=== PATIENT | female | born 1970 | race Caucasian/White ===

== ENCOUNTER → 2019-08-01 15:28 | Outpatient (BNVA) | payer MEDICAID, SELFPAY | PROVIDERS: Visit Provider Internal Medicine Rheumatology | DX: M35.9 Systemic involvement of connective tissue, unspecified (principal); Z79.899 Other long term (current) drug therapy; M19.90 Unspecified osteoarthritis, unspecified site; M05.9 Rheumatoid arthritis with rheumatoid factor, unspecified; G56.03 Carpal tunnel syndrome, bilateral upper limbs; M79.7 Fibromyalgia; Z79.52 Long term (current) use of systemic steroids | CPT/HCPCS: 99214 ==

== ENCOUNTER → 2019-10-16 12:38 | Outpatient (BNVA) | payer MEDICAID, SELFPAY | PROVIDERS: Visit Provider Internal Medicine Rheumatology | DX: M19.90 Unspecified osteoarthritis, unspecified site (principal); Z79.899 Other long term (current) drug therapy | CPT/HCPCS: 36415; 80076; 82565; 85025; 85651; 86140 ==

== ENCOUNTER → 2019-10-26 14:58 | Outpatient (BNVA) | payer MEDICAID, SELFPAY | PROVIDERS: Visit Provider Internal Medicine Rheumatology | DX: M35.9 Systemic involvement of connective tissue, unspecified (principal); M05.9 Rheumatoid arthritis with rheumatoid factor, unspecified; M19.90 Unspecified osteoarthritis, unspecified site; Z79.899 Other long term (current) drug therapy; R76.0 Raised antibody titer; M54.16 Radiculopathy, lumbar region; M79.7 Fibromyalgia | CPT/HCPCS: 99214 ==

== ENCOUNTER 2019-11-02 13:19 | Outpatient (CLI) | payer MEDICAID, SELFPAY ==
--- NOTE | 2019-11-02 13:23 | XR_ITS ---
WS: [id number] RIGHT FOOT: 3 VIEW(S) TECHNIQUE: AP, oblique and lateral. HISTORY: inflammatory arthritis COMPARISON: None available. No acute fracture or dislocation. Normal tarsal/metatarsal alignment. No soft tissue abnormality or bone destruction. Screw fixation in the distal tibia. XR/XR foot RT min 3V* [id number] IMPRESSION: Negative RIGHT foot. No erosions.
--- NOTE | 2019-11-02 13:23 | XR_ITS ---
WS: [id number] LEFT ELBOW: 2 VIEW(S) TECHNIQUE: AP and lateral. HISTORY: inflammatory arthritis COMPARISON: None available. No acute fractures or dislocation. No joint effusion. No soft tissue abnormality. XR/XR elbow LT 2V [id number] IMPRESSION: Normal LEFT elbow.
--- NOTE | 2019-11-02 13:23 | XR_ITS ---
WS: [id number] LEFT FOOT: 3 VIEW(S) TECHNIQUE: AP, oblique and lateral. HISTORY: inflammatory arthritis COMPARISON: None available. No acute fracture or dislocation. There is an erosion with mildly sclerotic margins and overhanging edges which could be related to gou t. There is adjacent soft tissue. No periarticular osteopenia. No soft tissue abnormality or bone destruction. XR/XR foot LT min 3V* [id number] IMPRESSION: Small erosion from the medial first metatarsal head. Not typical for inflammato ry arthritis. Consider gout or subchondral cyst.
--- NOTE | 2019-11-02 13:23 | XR_ITS ---
WS: [id number] RIGHT ELBOW: 2 VIEW(S) TECHNIQUE: AP and lateral. HISTORY: inflammatory arthritis COMPARISON: None available. No acute fractures or dislocation. No joint effusion. No soft tissue abnormality. XR/XR elbow RT 2V [id number] IMPRESSION: Normal RIGHT elbow.
--- NOTE | 2019-11-02 13:23 | XR_ITS ---
WS: [id number] RIGHT HAND: 3 VIEW(S) TECHNIQUE: PA, oblique and lateral. HISTORY: inflammatory arthritis COMPARISON: None available. No acute fracture or dislocation. No soft tissue or bone abnormality. XR/XR hand RT min 3V* [id number] IMPRESSION: Normal RIGHT hand.
--- NOTE | 2019-11-02 13:23 | XR_ITS ---
WS: [id number] LEFT HAND: 3 VIEW(S) TECHNIQUE: PA, oblique and lateral. HISTORY: inflammatory arthritis COMPARISON: None available. No acute fracture or dislocation. No soft tissue or bone abnormality. XR/XR hand LT min 3V* [id number] IMPRESSION: Normal LEFT hand.
== END 2019-11-02 13:20 | disposition home or self-care (01) ==
LOC: RADWPI 13:22
PROVIDERS: PCP Nurse Practitioner Family; Visit Provider Internal Medicine Rheumatology
DX: M19.90 Unspecified osteoarthritis, unspecified site (principal); M85.872 Other specified disorders of bone density and structure, left ankle and foot
CPT/HCPCS: 73070; 73130; 73630

== ENCOUNTER → 2020-02-01 10:42 | Outpatient (BNVA) | payer MEDICAID, SELFPAY | PROVIDERS: PCP Nurse Practitioner Family; Visit Provider Internal Medicine Rheumatology | DX: M34.9 Systemic sclerosis, unspecified (principal); Z79.899 Other long term (current) drug therapy; M19.90 Unspecified osteoarthritis, unspecified site; M35.9 Systemic involvement of connective tissue, unspecified; M06.041 Rheumatoid arthritis without rheumatoid factor, right hand; M06.042 Rheumatoid arthritis without rheumatoid factor, left hand; G56.03 Carpal tunnel syndrome, bilateral upper limbs; M79.7 Fibromyalgia; Z79.52 Long term (current) use of systemic steroids | CPT/HCPCS: 36415; 80076; 82565; 85025; 85651; 86140; 99214 ==

== ENCOUNTER → 2021-03-25 09:32 | Outpatient (BNVA) | payer MEDICAID, SELFPAY | PROVIDERS: PCP Nurse Practitioner Family; Visit Provider Internal Medicine Rheumatology | DX: M34.9 Systemic sclerosis, unspecified (principal); M06.041 Rheumatoid arthritis without rheumatoid factor, right hand; M06.042 Rheumatoid arthritis without rheumatoid factor, left hand; M19.90 Unspecified osteoarthritis, unspecified site; G56.03 Carpal tunnel syndrome, bilateral upper limbs; Z79.899 Other long term (current) drug therapy; M79.7 Fibromyalgia; F41.8 Other specified anxiety disorders; G47.33 Obstructive sleep apnea (adult) (pediatric); Z71.89 Other specified counseling | CPT/HCPCS: 99214 ==

== ENCOUNTER 2021-04-21 10:17 | Emergency (ER) | payer MEDICAID, SELFPAY ==
[2021-04-21 10:42] VITALS: BP 119/78; PULSE 102; RESP 22; TEMP 36.6; O2SAT 97; BMI 32.8
--- NOTE | 2021-04-21 10:49 | XR_ITS ---
WS: [id number] PORTABLE CHEST HISTORY: productive cough COMPARISON: 02/24/2017 Lungs are clear and well expanded. No pleural effusion or pneumothorax. Cardiac size: Normal. Mediastinum/Aorta: Normal mediastinum. No osseous abnormality seen. XR/XR chest 1V portable [id number] IMPRESSION: Unremarkable portable chest.
[2021-04-21 11:05] VITALS: BP 120/80; PULSE 104; RESP 22; TEMP 38.6; O2SAT 97
[2021-04-21 11:16] VITALS: O2SAT 95
--- NOTE | 2021-04-21 11:22 | ECG_ITS ---
[facility] Test Date: 2021-04-21 Pat Name: Charley Clark Department: Room: Gender: Female Box Liner: : 1970 Requested By: Royal Agudelo Order Number: [id number] Martin MD: Juan David Mueller M.D. Measurements Intervals Hematite Rate: 97 P: 2 CT: 137 QRS: -23 QRSD: 97 T: -2 QT: 337 QTc: 428 Interpretive Statements SINUS RHYTHM BORDERLINE LEFT AXIS DEVIATION [QRS AXIS < -20] Compared to ECG 02/24/2017 12:37:26 No significant changes Electronically Signed On 04-21-2021 16:44:57 DIRECTOR APPAREL by Juan David Mueller M.D. [id number]
--- NOTE | 2021-04-21 11:24 | W.ED.COVID ---
Documented by User: ARMAND Bryan 04/22/21 07:22 HPI - COVID General: Chief Complaint: COVID symptoms Stated Complaint: Cough, DELAROSA, Nausea, Tiredness, Diarrhea Time Seen by Provider: 04/21/21 10:49 Triage information: Has fever, cough or shortness of breath. No known COVID + exposure last 14 days History of Present Illness: HPI Narrative: Patient is a 50-year-old female comes to the ED with upper respiratory symptoms. Patient says she started developing symptoms approximately 3 days ago. She has a productive cough with yellow sputum. She also reports having some nausea and diarrhea. She denies any episodes of emesis but states she has not had much of an appetite since onset of symptoms. She also reports a headache as well and body aches. Yesterday she had multiple episodes of diarrhea, but has not had any diarrhea this morning. Denies any chest pain or shortness of breath. COVID 19 common symptoms: positive body aches, headache(s), nausea and diarrhea; negative fever(s), chills, non-productive cough, productive cough, dyspnea, fatigue, throat pain, nasal congestion or vomiting COVID 19 other sytmptoms: negative chest pain COVID Results: SARS-CoV-2 Antigen (Rapid) Positive (Negative) H 04/21/21 11:18 04/21/21 Review of Systems Const: Reports: body aches and change in appetite (decreased); Denies: fever(s), chills or fatigue Eyes: Denies: change in vision or eye discomfort ENMT: Denies: throat pain, odynophagia, nasal discharge or nasal congestion Card: Denies: chest pain, palpitations, edema, swelling of feet/ankles, dyspnea on exertion or orthopnea Resp: Denies: dyspnea, productive cough or non-productive cough GI: Reports: nausea and diarrhea; Denies: abdominal pain, vomiting, constipation or hematochezia : Denies: flank pain, dysuria or hematuria Musc: Denies: neck pain, back pain or extremity swelling Skin/Breast: Denies: rash or new lesions Neuro: Reports: headache(s); Denies: numbness in extremities or weakness in extremities PFS ED PFSH: Medical History Carpal tunnel syndrome High risk medication use Immunization counseling Inflammatory arthritis Seronegative rheumatoid arthritis of both hands Systemic sclerosis Undifferentiated connective tissue disease Surgical History History of ankle surgery fusion 2009 Hx of cholecystectomy Social History Smoking and tobacco status: never smoked Alcohol intake: never History of recent travel: No Physical Exam Const: COMMON NORMALS: no acute distress, patient oriented x3, healthy appearing and alert GENERAL APPEARANCE: cooperative and comfortable HENMT: COMMON NORMALS: normocephalic HEAD & SCALP: normocephalic MOUTH: Normal oral and palatal mucosa present THROAT: posterior oropharynx normal and uvula midline Eye: COMMON NORMALS: Equal, round and reactive pupils present PUPIL: Yes Equal, round and reactive pupils present Neck/C-Spine: COMMON NORMALS: supple GENERAL: Yes normal visual inspection Resp: COMMON NORMALS: normal respiratory effort, No retractions and No use of accessory muscles EFFORT & INSPECTION: Yes able to speak in complete sentences, No tachypneic, No respiratory distress, No labored and Yes Actively coughing productive AUSCULTATION: diminished lung sounds on the left in the lower lung mccann OTHER: all other lung mccann clear to auscultation Cardio: COMMON NORMALS: regular rate, regular rhythm, S1 normal heart sound present, S2 normal heart sound present, No gallops present (Cardio), No clicks present (Cardio), No murmurs present (Cardio) and Peripheral pulses 2+ throughout RATE: regular rate RHYTHM: regular rhythm HEART SOUNDS: S1 normal heart sound present and S2 normal heart sound present PERIPHERAL PULSES: Peripheral pulses 2+ throughout GI: COMMON NORMALS: Normal to inspection, nondistended, normoactive bowel sounds present, Soft to palpation, non-tender and no masses PALPATION: Yes Soft to palpation : COMMON NORMALS: Yes no CVA tenderness BLADDER/KIDNEY EXAM: Yes no CVA tenderness Back/Pelvis: COMMON NORMALS: no CVA tenderness Extremity: COMMON NORMALS: normal to inspection Neuro: COMMON NORMALS: patient oriented x3 and moves all extremities SENSORIUM/ORIENTATION: Yes alert Skin: GENERAL SKIN EXAM: dry skin Course Vital Signs: Vital signs: Vital Signs Temperature 99.4 F 04/21/21 14:07 Pulse Rate 88 04/21/21 14:07 Respiratory Rate 20 H 04/21/21 14:07 Blood Pressure 124/64 04/21/21 14:07 Pulse Oximetry 94 04/21/21 14:07 MDM - COVID MDM Narrative: Medical decision making narrative: Pt is a 50 y/o F who comes to the ED with Upper respiratory symptoms. pmh of Lupus. vitals stable. She reports a productive cough. Pt had some mild diminished lung sound in left lower lung, but all other lung mccann CTA and rest of exam was benign. CBC, CMP were unremarkable. COVID lab +, influenza negative. CXR- showed no acute findings. EKG showed normal sinus rhythm. I spoke with pt about MCA infusions and she signed consent form and i placed an order with case management to get pt set up for MCA infusion. Pt diagnosed with COVID -19 and DC home with antibiotic, prednisone and tessalon perles. return to ED precautions given. Follow up with PCP in 7-10 days for reevaluation. pt understood and agreed with plan. Lab Data: Attestation: I reviewed the patient's lab results. Labs: Lab Results 04/21/21 04/21/21 04/21/21 11:18 11:18 11:18 WBC RBC Hgb Hct MCV MCH MCHC RDW Plt Count MPV Neut % (Auto) Lymph % (Auto) [place] % (Auto) Eos % (Auto) Baso % (Auto) Neut # (Auto) Lymph # (Auto) [place] # (Auto) Eos # (Auto) Baso # (Auto) Nucleated RBC % (a uto) Nucleated RBCs # Sodium Potassium Chloride Carbon Dioxide Anion Gap BUN Creatinine GFR Calculation Glucose Calculated Osmolal ity Calcium Total Bilirubin AST ALT Alkaline Phosphata se Total Protein Albumin Globulin Lipase Urine Color Yellow (Yellow) Urine Appearance Clear (CLEAR) Urine pH 5 (5-7) Ur Specific Gravit y 1.015 (1.005-1.030) Urine Protein Neg (Negative) Urine Glucose (UA) Norm (Normal) Urine Ketones Negative (Negative) Urine Blood Neg (Negative) Urine Nitrate Negative (Negative) Urine Bilirubin Neg (Negative) Urine Urobilinogen 1 mg/dL H mg/dL (Negative) Ur Leukocyte Violetta ase Negative (Negative) Influenza Type A A g Negative (Negative) Influenza Type B A g Negative (Negative) SARS-CoV-2 Ag (Rap id) Positive H (Negative) 04/21/21 04/21/21 11:50 11:50 WBC 7.4 10^3/uL 10^3/ uL (4.0-10.0) RBC 4.51 10^6/uL 10^6 /uL (4.1-5.3) Hgb 14.1 g/dL g/dL (11.5-15.3) Hct 41.0 % % (37.0-47.0) MCV 90.9 fl fl (81-99) MCH 31.3 pg pg (28.0-34.0) MCHC 34.4 g/dL g/dL (30.0-36.0) RDW 11.9 % L % (12.1-15.1) Plt Count 220 10^3/cmm 10^3 /cmm (130-400) MPV 9.7 fL fL (7.4-10.4) Neut % (Auto) 78.1 % % Lymph % (Auto) 11.2 % % [place] % (Auto) 9.7 % % Eos % (Auto) 0.4 % % Baso % (Auto) 0.3 % % Neut # (Auto) 5.78 10^3/uL 10^3 /uL (1.8-7.7) Lymph # (Auto) 0.8 10^3/uL 10^3/ uL (0.8-4.8) [place] # (Auto) 0.7 10^3/uL 10^3/ uL (0.2-0.9) Eos # (Auto) 0.0 10^3/uL 10^3/ uL (0.0-0.8) Baso # (Auto) 0.0 10^3/uL 10^3/ uL (0.0-0.1) Nucleated RBC % (a uto) 0 % % Nucleated RBCs # 0.0 /100WBC /100W BC Sodium 141 mmol/L mmol/L (136-145) Potassium 3.7 mmol/L mmol/L (3.5-5.1) Chloride 103 mmol/L mmol/L (98-107) Carbon Dioxide 24 mmol/L mmol/L (22-29) Anion Gap 17.7 (5-19) BUN 11 mg/dL mg/dL (6-20) Creatinine 0.5 mg/dL mg/dL (0.5-0.9) GFR Calculation 129.6 mL/min mL/m in (90-130) Glucose 90 mg/dL mg/dL (65-115) Calculated Osmolal ity 291 mOsm/kg mOsm/ kg (285-295) Calcium 8.7 mg/dL mg/dL (8.5-10.5) Total Bilirubin 0.4 mg/dL mg/dL (0.15-1.2) AST 25 U/L U/L (0-32) ALT 20 U/L U/L (0-33) Alkaline Phosphata se 89 IU/L IU/L (35-105) Total Protein 7.1 g/dL g/dL (6.6-8.7) Albumin 3.9 g/dL g/dL (3.5-5.2) Globulin 3.2 g/dL g/dL (1.3-4.6) Lipase 32 U/L U/L (13-60) Urine Color Urine Appearance Urine pH Ur Specific Gravit y Urine Protein Urine Glucose (UA) Urine Ketones Urine Blood Urine Nitrate Urine Bilirubin Urine Urobilinogen Ur Leukocyte Violetta ase Influenza Type A A g Influenza Type B A g SARS-CoV-2 Ag (Rap id) Imaging Data: CXR: Attestation: I personally reviewed and interpreted this imaging study as follows: Radiologist's impression: [address] [address] XRay Report Signed Patient: Charley Clark Unit #: [id number] : 1970 Age/Sex: 50 / F ADM Date: 04/21/21 Loc: ER Room/Bed: Attending Dr: Ordering Provider/Ordering MD: Royal Agudelo Date of Service: 04/21/21 Procedure(s): XR chest 1V portable [id number] Accession Number(s): [id number] Report Number: [id number] WS: [id number] PORTABLE CHEST HISTORY: productive cough COMPARISON: 02/24/2017 Lungs are clear and well expanded. No pleural effusion or pneumothorax. Cardiac size: Normal. Mediastinum/Aorta: Normal mediastinum. No osseous abnormality seen. XR/XR chest 1V portable [id number] IMPRESSION: Unremarkable portable chest. Dictated By: Yaquelin Ayala DO Signed By: Yaquelin Ayala A Signed Date/Time: 04/21/211118 DD/ 18 EKG Data: EKG 1: Attestation: I personally reviewed and interpreted this EKG as follows: EKG interpretation date: 04/21/21 Interpretation: Normal sinus rhythm, 97 bpm, no ST segment elevation or depression seen. COVID Results: SARS-CoV-2 Antigen (Rapid) Positive (Negative) H 04/21/21 11:18 04/21/21 Discharge Plan Discharge Patient Disposition: Home Clinical Impression: COVID-19 Condition: Stable Prescriptions: New prednisone 20 mg tablet 20 mg PO BID 5 Days Qty: 10 RF: 0 Tessalon Perles 100 mg capsule 100 mg PO TID PRN (Reason: cough) Qty: 20 RF: 0 Augmentin 500-125 mg tablet 1 tab PO BID 7 Days Qty: 14 RF: 0 No Action meloxicam [Mobic] 15 mg tablet 15 mg PO DAILY RF: 0 sumatriptan succinate [Imitrex] 100 mg tablet 100 mg PO .COMPLEX PRN (Reason: migraine headache) RF: 0 escitalopram oxalate [Lexapro] 10 mg tablet 10 mg PO DAILY RF: 0 promethazine 25 mg tablet 25 mg PO Q6H PRNRF: 0 ibuprofen 600 mg tablet 600 mg PO DAILY PRNRF: 0 etonogestrel 68 mg implant 68 mg SUBDERMAL ONCE RF: 0 acetaminophen-codeine [Tylenol-Codeine #3] 300-30 mg tablet 1 tab PO BID PRNRF: 0 multivitamin Tablet 1 tab PO DAILY RF: 0 Orencia ClickJect 125 mg/mL auto-injector 125 mg SUBCUT .Q7days Qty: 4 RF: 3 hydroxychloroquine 200 mg tablet 200 mg PO BID Qty: 60 RF: 3 pregabalin [Lyrica] 225 mg capsule 225 mg PO BID Qty: 60 RF: 3 pantoprazole 40 mg tablet,delayed release (DR/EC) 40 mg PO DAILY Qty: 30 RF: 0 prednisone 2.5 mg tablet See Rx Instructions PO DAILY Qty: 90 RF: 0 Discharge Orders: Discharge ED (Routine); Ordered 04/21/21 Ordered By: Royal Agudelo Referrals: Mehreen Quarles FNP [Primary Care Provider] - Discharge Diet: Regular Discharge Activity: Increase activity as tolerated and Limit activity as instructed Patient Instructions: Viral Syndrome (ED), Upper Respiratory Infection - Adult Activity Restrictions/Additional Instructions: Follow-up with medical provider as directed. rehabilitation manager will be contacting you tomorrow morning to get the monoclonal antibody infusion scheduled. Take medications as prescribed. Return to the ER or your medical provider if condition worsens. Please read and understand discharge instructions. Thank you for choosing [facility] for your healthcare needs today. Please realize this is an emergency room and that we are providing you with a medical screening exam and this may not be complete and all inclusive of all the testing and or work up that you may need to determine your ailment or severity of your illness. It is very important that you follow up as instructed or that you return to the Emergency Department should you have concerns or if your condition changes or worsens in any way. Coding Level of Care Code ED Lead Custodian for Chg Fwd Exam Comprehensive Documented by User: Castillo Miramontes DO 04/24/21 10:00 HPI - COVID General: Chief Complaint: COVID symptoms Stated Complaint: Cough, DELAROSA, Nausea, Tiredness, Diarrhea Time Seen by Provider: 04/21/21 10:49 COVID Results: SARS-CoV-2 Antigen (Rapid) Positive (Negative) H 04/21/21 11:18 04/21/21 [facility] ED PFSH: Medical History Carpal tunnel syndrome High risk medication use Immunization counseling Inflammatory arthritis Seronegative rheumatoid arthritis of both hands Systemic sclerosis Undifferentiated connective tissue disease Surgical History History of ankle surgery fusion 2009 Hx of cholecystectomy Social History Smoking and tobacco status: never smoked Alcohol intake: never History of recent travel: No Course Vital Signs: Vital signs: Vital Signs Temperature 99.4 F 04/21/21 14:07 Pulse Rate 88 04/21/21 14:07 Respiratory Rate 20 H 04/21/21 14:07 Blood Pressure 124/64 04/21/21 14:07 Pulse Oximetry 94 04/21/21 14:07 MDM - COVID MDM Narrative: Medical decision making narrative: Chart reviewed and patient discussed with midlevel. Agree with assessment and plan. Lab Data: Labs: Lab Results 04/21/21 04/21/21 04/21/21 11:18 11:18 11:18 WBC RBC Hgb Hct MCV MCH MCHC RDW Plt Count MPV Neut % (Auto) Lymph % (Auto) [place] % (Auto) Eos % (Auto) Baso % (Auto) Neut # (Auto) Lymph # (Auto) [place] # (Auto) Eos # (Auto) Baso # (Auto) Nucleated RBC % (a uto) Nucleated RBCs # Sodium Potassium Chloride Carbon Dioxide Anion Gap BUN Creatinine GFR Calculation Glucose Calculated Osmolal ity Calcium Total Bilirubin AST ALT Alkaline Phosphata se Total Protein Albumin Globulin Lipase Urine Color Yellow (Yellow) Urine Appearance Clear (CLEAR) Urine pH 5 (5-7) Ur Specific Gravit y 1.015 (1.005-1.030) Urine Protein Neg (Negative) Urine Glucose (UA) Norm (Normal) Urine Ketones Negative (Negative) Urine Blood Neg (Negative) Urine Nitrate Negative (Negative) Urine Bilirubin Neg (Negative) Urine Urobilinogen 1 mg/dL H mg/dL (Negative) Ur Leukocyte Violetta ase Negative (Negative) Influenza Type A A g Negative (Negative) Influenza Type B A g Negative (Negative) SARS-CoV-2 Ag (Rap id) Positive H (Negative) 04/21/21 04/21/21 11:50 11:50 WBC 7.4 10^3/uL 10^3/ uL (4.0-10.0) RBC 4.51 10^6/uL 10^6 /uL (4.1-5.3) Hgb 14.1 g/dL g/dL (11.5-15.3) Hct 41.0 % % (37.0-47.0) MCV 90.9 fl fl (81-99) MCH 31.3 pg pg (28.0-34.0) MCHC 34.4 g/dL g/dL (30.0-36.0) RDW 11.9 % L % (12.1-15.1) Plt Count 220 10^3/cmm 10^3 /cmm (130-400) MPV 9.7 fL fL (7.4-10.4) Neut % (Auto) 78.1 % % Lymph % (Auto) 11.2 % % [place] % (Auto) 9.7 % % Eos % (Auto) 0.4 % % Baso % (Auto) 0.3 % % Neut # (Auto) 5.78 10^3/uL 10^3 /uL (1.8-7.7) Lymph # (Auto) 0.8 10^3/uL 10^3/ uL (0.8-4.8) [place] # (Auto) 0.7 10^3/uL 10^3/ uL (0.2-0.9) Eos # (Auto) 0.0 10^3/uL 10^3/ uL (0.0-0.8) Baso # (Auto) 0.0 10^3/uL 10^3/ uL (0.0-0.1) Nucleated RBC % (a uto) 0 % % Nucleated RBCs # 0.0 /100WBC /100W BC Sodium 141 mmol/L mmol/L (136-145) Potassium 3.7 mmol/L mmol/L (3.5-5.1) Chloride 103 mmol/L mmol/L (98-107) Carbon Dioxide 24 mmol/L mmol/L (22-29) Anion Gap 17.7 (5-19) BUN 11 mg/dL mg/dL (6-20) Creatinine 0.5 mg/dL mg/dL (0.5-0.9) GFR Calculation 129.6 mL/min mL/m in (90-130) Glucose 90 mg/dL mg/dL (65-115) Calculated Osmolal ity 291 mOsm/kg mOsm/ kg (285-295) Calcium 8.7 mg/dL mg/dL (8.5-10.5) Total Bilirubin 0.4 mg/dL mg/dL (0.15-1.2) AST 25 U/L U/L (0-32) ALT 20 U/L U/L (0-33) Alkaline Phosphata se 89 IU/L IU/L (35-105) Total Protein 7.1 g/dL g/dL (6.6-8.7) Albumin 3.9 g/dL g/dL (3.5-5.2) Globulin 3.2 g/dL g/dL (1.3-4.6) Lipase 32 U/L U/L (13-60) Urine Color Urine Appearance Urine pH Ur Specific Gravit y Urine Protein Urine Glucose (UA) Urine Ketones Urine Blood Urine Nitrate Urine Bilirubin Urine Urobilinogen Ur Leukocyte Violetta ase Influenza Type A A g Influenza Type B A g SARS-CoV-2 Ag (Rap id) COVID Results: SARS-CoV-2 Antigen (Rapid) Positive (Negative) H 04/21/21 11:18 04/21/21 Discharge Plan Discharge Patient Disposition: Home Clinical Impression: COVID-19 Condition: Stable Prescriptions: New prednisone 20 mg tablet 20 mg PO BID 5 Days Qty: 10 RF: 0 Tessalon Perles 100 mg capsule 100 mg PO TID PRN (Reason: cough) Qty: 20 RF: 0 Augmentin 500-125 mg tablet 1 tab PO BID 7 Days Qty: 14 RF: 0 No Action meloxicam [Mobic] 15 mg tablet 15 mg PO DAILY RF: 0 sumatriptan succinate [Imitrex] 100 mg tablet 100 mg PO .COMPLEX PRN (Reason: migraine headache) RF: 0 escitalopram oxalate [Lexapro] 10 mg tablet 10 mg PO DAILY RF: 0 promethazine 25 mg tablet 25 mg PO Q6H PRNRF: 0 ibuprofen 600 mg tablet 600 mg PO DAILY PRNRF: 0 etonogestrel 68 mg implant 68 mg SUBDERMAL ONCE RF: 0 acetaminophen-codeine [Tylenol-Codeine #3] 300-30 mg tablet 1 tab PO BID PRNRF: 0 multivitamin Tablet 1 tab PO DAILY RF: 0 Orencia ClickJect 125 mg/mL auto-injector 125 mg SUBCUT .Q7days Qty: 4 RF: 3 hydroxychloroquine 200 mg tablet 200 mg PO BID Qty: 60 RF: 3 pregabalin [Lyrica] 225 mg capsule 225 mg PO BID Qty: 60 RF: 3 pantoprazole 40 mg tablet,delayed release (DR/EC) 40 mg PO DAILY Qty: 30 RF: 0 prednisone 2.5 mg tablet See Rx Instructions PO DAILY Qty: 90 RF: 0 Discharge Orders: Discharge ED (Routine); Ordered 04/21/21 Ordered By: Royal Akins: Mehreen Quarles FNP [Primary Care Provider] - Discharge Diet: Regular Discharge Activity: Increase activity as tolerated and Limit activity as instructed Patient Instructions: Viral Syndrome (ED), Upper Respiratory Infection - Adult Activity Restrictions/Additional Instructions: Follow-up with medical provider as directed. rehabilitation manager will be contacting you tomorrow morning to get the monoclonal antibody infusion scheduled. Take medications as prescribed. Return to the ER or your medical provider if condition worsens. Please read and understand discharge instructions. Thank you for choosing [facility] for your healthcare needs today. Please realize this is an emergency room and that we are providing you with a medical screening exam and this may not be complete and all inclusive of all the testing and or work up that you may need to determine your ailment or severity of your illness. It is very important that you follow up as instructed or that you return to the Emergency Department should you have concerns or if your condition changes or worsens in any way. Coding Level of Care Code ED Lead Custodian for Gerri Fwtessy Exam Comprehensive
[2021-04-21 12:02] LABS: Add Urine Microscopic? NO; Charge for UA Resulting for Rev
[2021-04-21] MEDS: ondansetron 2 mg/ML SDV 2 mL 4 MG IVP (12:07)
[2021-04-21] MEDS: ibuprofen 800 mg tablet PO (12:07)
[2021-04-21 12:09] VITALS: BP 131/68; PULSE 99; RESP 15; TEMP 38.3; O2SAT 93
[2021-04-21 12:14] LABS: Bilirubin Urine Neg (Negative); Blood Urine Neg (Negative); Glucose Urine UA Norm (Normal); Ketones Urine Negative (Negative); Leukocyte Esterase Urine Negative (Negative); Nitrate Urine Negative (Negative); Protein Urine Neg (Negative); Specific Gravity, Urine 1.015 (1.005-1.030); Urine Appearance Clear (CLEAR); Urine Color Yellow (Yellow); Urobilinogen Urine 1 mg/dL (Negative); pH Urine 5 (5-7)
[2021-04-21 12:21] LABS: Basophils % 0.3 %; Eosinophils % 0.4 %; Hemoglobin 14.1 g/dL (11.5-15.3); Lymphocytes # 0.8 10^3/uL (0.8-4.8); Lymphocytes % 11.2 %; Mean Corpuscular HGB Conc 34.4 g/dL (30.0-36.0); Mean Corpuscular Hemoglobin 31.3 pg (28.0-34.0); Mean Corpuscular Volume 90.9 fl (81-99); Mean Platelet Volume 9.7 fL (7.4-10.4); Monocytes # 0.7 10^3/uL (0.2-0.9); Monocytes % 9.7 %; Neutrophils # 5.78 10^3/uL (1.8-7.7); Neutrophils % 78.1 %; Nucleated Red Blood Cells % 0 %; Platelet Count 220 10^3/cmm (130-400); Red Blood Count 4.51 10^6/uL (4.1-5.3); Red Cell Distribution Width 11.9 % (12.1-15.1); White Blood Count 7.4 10^3/uL (4.0-10.0)
[2021-04-21 12:25] LABS: SARS Covid-2 Antigen Positive (Negative)
[2021-04-21 12:27] LABS: Influenza A by IFA Negative (Negative); Influenza B by IFA Negative (Negative)
[2021-04-21 12:32] LABS: Alanine Aminotransferase 20 U/L (0-33); Albumin Level 3.9 g/dL (3.5-5.2); Alkaline Phosphatase 89 IU/L (35-105); Blood Urea Nitrogen 11 mg/dL (6-20); Calcium 8.7 mg/dL (8.5-10.5); Carbon Dioxide 24 mmol/L (22-29); Chloride 103 mmol/L (98-107); Globulin 3.2 g/dL (1.3-4.6); Glomerular Filtration Rate 129.6 mL/min (90-130); Glucose 90 mg/dL (65-115); Lipase 32 U/L (13-60); Osmolality Calculated 291 mOsm/kg (285-295); Sodium 141 mmol/L (136-145); Total Bilirubin 0.4 mg/dL (0.15-1.2); Total Protein 7.1 g/dL (6.6-8.7)
[2021-04-21] MEDS: sodium chloride 0.9% 1,000 ML 999 ML IV (12:43)
[2021-04-21 12:47] LABS: Anion Gap 17.7 (5-19); Aspartate Amino Transferase 25 U/L (0-32); Potassium 3.7 mmol/L (3.5-5.1)
[2021-04-21 14:07] VITALS: BP 124/64; PULSE 88; RESP 20; TEMP 37.4; O2SAT 94
--- NOTE | 2021-04-22 12:14 | DCPLANNER ---
industrial safety and health manager had message to schedule an outpatient monoclonal antibody infusion. industrial safety and health manager faxed order to centralized scheduling.
== END 2021-04-21 14:09 | disposition home or self-care (01) ==
PROVIDERS: Emergency Provider Physician Assistant; PCP Nurse Practitioner Family
DX: U07.1 COVID-19 (principal); Z79.891 Long term (current) use of opiate analgesic; Z79.1 Long term (current) use of non-steroidal anti-inflammatories (NSAID)
CPT/HCPCS: 71045; 80053; 81003; 83690; 85025; 87426; 87804; 93005; 96361; 96374; 99284; J2405; J7030

== ENCOUNTER 2021-04-25 13:30 | Outpatient (CLI) | payer MEDICAID, SELFPAY ==
[2021-04-25 13:46] VITALS: BP 143/80; PULSE 88; RESP 18; TEMP 36.3; O2SAT 95; BMI 32.8
[2021-04-25 15:45] VITALS: BP 112/69; PULSE 88; RESP 16; TEMP 37; O2SAT 93
== END 2021-04-25 13:31 | disposition home or self-care (01) ==
LOC: OPS 13:31
PROVIDERS: PCP Nurse Practitioner Family; Visit Provider Physician Assistant
DX: U07.1 COVID-19 (principal)
CPT/HCPCS: 96365

== ENCOUNTER 2021-07-21 13:53 | Outpatient (CLI) | payer MEDICAID, SELFPAY ==
[2021-07-21 14:37] LABS: Basophils # 0.1 10^3/uL (0.0-0.1); Basophils % 1.2 %; Eosinophils # 0.2 10^3/uL (0.0-0.8); Eosinophils % 2.8 %; Hematocrit 41.2 % (37.0-47.0); Hemoglobin 13.7 g/dL (11.5-15.3); Lymphocytes # 2.8 10^3/uL (0.8-4.8); Lymphocytes % 41.1 %; Mean Corpuscular HGB Conc 33.3 g/dL (30.0-36.0); Mean Corpuscular Hemoglobin 31.3 pg (28.0-34.0); Mean Corpuscular Volume 94.1 fl (81-99); Mean Platelet Volume 9.2 fL (7.4-10.4); Monocytes # 0.8 10^3/uL (0.2-0.9); Monocytes % 11.2 %; Neutrophils # 2.93 10^3/uL (1.8-7.7); Neutrophils % 43.4 %; Nucleated Red Blood Cells % 0 %; Platelet Count 316 10^3/cmm (130-400); Red Blood Count 4.38 10^6/uL (4.1-5.3); Red Cell Distribution Width 12.1 % (12.1-15.1); White Blood Count 6.8 10^3/uL (4.0-10.0)
[2021-07-21 15:02] LABS: Alanine Aminotransferase 15 U/L (0-33); Albumin Level 4.5 g/dL (3.5-5.2); Alkaline Phosphatase 79 IU/L (35-105); Aspartate Amino Transferase 16 U/L (0-32); C Reactive Protein 0.6 mg/L (0.0-4.9); Globulin 2.3 g/dL (1.3-4.6); Glomerular Filtration Rate 104.6 mL/min (90-130); Total Bilirubin 0.4 mg/dL (0.15-1.2); Total Protein 6.8 g/dL (6.6-8.7)
== END 2021-07-21 13:54 | disposition home or self-care (01) ==
LOC: LAB 14:06
PROVIDERS: PCP Nurse Practitioner Family; Visit Provider Internal Medicine Rheumatology
DX: M06.041 Rheumatoid arthritis without rheumatoid factor, right hand (principal); M06.042 Rheumatoid arthritis without rheumatoid factor, left hand; M19.90 Unspecified osteoarthritis, unspecified site; Z79.899 Other long term (current) drug therapy
CPT/HCPCS: 80076; 82565; 85025; 86140

== ENCOUNTER → 2021-07-22 14:03 | Outpatient (BNVA) | payer MEDICAID, SELFPAY | PROVIDERS: PCP Nurse Practitioner Family; Visit Provider Internal Medicine Rheumatology | DX: M34.9 Systemic sclerosis, unspecified (principal); M06.041 Rheumatoid arthritis without rheumatoid factor, right hand; M06.042 Rheumatoid arthritis without rheumatoid factor, left hand; R76.8 Other specified abnormal immunological findings in serum; M54.16 Radiculopathy, lumbar region; M79.7 Fibromyalgia; F41.8 Other specified anxiety disorders; G47.33 Obstructive sleep apnea (adult) (pediatric); Z71.89 Other specified counseling; Z79.899 Other long term (current) drug therapy | CPT/HCPCS: 99214 ==

== ENCOUNTER → 2021-09-18 13:22 | Outpatient (BNVA) | payer MEDICAID, SELFPAY | PROVIDERS: PCP Nurse Practitioner Family; Visit Provider Nurse Practitioner Women's Health | DX: Z01.419 Encounter for gynecological examination (general) (routine) without abnormal findings (principal); Z12.4 Encounter for screening for malignant neoplasm of cervix; Z30.46 Encounter for surveillance of implantable subdermal contraceptive; Z79.899 Other long term (current) drug therapy | CPT/HCPCS: 87624 ==

== ENCOUNTER → 2021-09-26 08:09 | Outpatient (BNVA) | payer MEDICAID, SELFPAY | PROVIDERS: PCP Nurse Practitioner Family; Visit Provider Nurse Practitioner Women's Health | DX: Z30.9 Encounter for contraceptive management, unspecified (principal); Z30.46 Encounter for surveillance of implantable subdermal contraceptive | CPT/HCPCS: 81025 ==

== ENCOUNTER 2021-11-13 13:18 | Outpatient (CLI) | payer MEDICAID, SELFPAY ==
[2021-11-13 13:49] LABS: Basophils # 0.1 10^3/uL (0.0-0.1); Eosinophils # 0.2 10^3/uL (0.0-0.8); Eosinophils % 2.7 %; Hematocrit 43.2 % (37.0-47.0); Hemoglobin 14.1 g/dL (11.5-15.3); Lymphocytes # 2.7 10^3/uL (0.8-4.8); Lymphocytes % 36.4 %; Mean Corpuscular HGB Conc 32.6 g/dL (30.0-36.0); Mean Corpuscular Hemoglobin 31.2 pg (28.0-34.0); Mean Corpuscular Volume 95.6 fl (81-99); Mean Platelet Volume 9.6 fL (7.4-10.4); Monocytes # 0.6 10^3/uL (0.2-0.9); Monocytes % 8.4 %; Neutrophils # 3.77 10^3/uL (1.8-7.7); Neutrophils % 51.2 %; Nucleated Red Blood Cells % 0 %; Platelet Count 250 10^3/cmm (130-400); Red Blood Count 4.52 10^6/uL (4.1-5.3); White Blood Count 7.4 10^3/uL (4.0-10.0)
[2021-11-13 14:09] LABS: Alanine Aminotransferase 12 U/L (0-33); Albumin Level 4.4 g/dL (3.5-5.2); Alkaline Phosphatase 78 IU/L (35-105); Aspartate Amino Transferase 15 U/L (0-32); Globulin 2.7 g/dL (1.3-4.6); Glomerular Filtration Rate 104.6 mL/min (90-130); Total Bilirubin 0.6 mg/dL (0.15-1.2); Total Protein 7.1 g/dL (6.6-8.7)
== END 2021-11-13 13:19 | disposition home or self-care (01) ==
LOC: LAB 13:20
PROVIDERS: PCP Nurse Practitioner Family; Visit Provider Internal Medicine Rheumatology
DX: M06.041 Rheumatoid arthritis without rheumatoid factor, right hand (principal); M06.042 Rheumatoid arthritis without rheumatoid factor, left hand; Z79.899 Other long term (current) drug therapy
CPT/HCPCS: 36415; 80076; 82565; 85025; 86140

== ENCOUNTER → 2021-11-19 13:19 | Outpatient (BNVA) | payer MEDICAID, SELFPAY | PROVIDERS: PCP Nurse Practitioner Family; Visit Provider Internal Medicine Rheumatology | DX: M06.041 Rheumatoid arthritis without rheumatoid factor, right hand (principal); M06.042 Rheumatoid arthritis without rheumatoid factor, left hand; M54.16 Radiculopathy, lumbar region; Z79.899 Other long term (current) drug therapy; M34.9 Systemic sclerosis, unspecified; M79.7 Fibromyalgia; Z71.89 Other specified counseling | CPT/HCPCS: 99214 ==

== ENCOUNTER → 2022-03-09 13:00 | Outpatient (BNVA) | payer MEDICAID, SELFPAY | PROVIDERS: PCP Nurse Practitioner Family; Visit Provider Internal Medicine Rheumatology | DX: M06.041 Rheumatoid arthritis without rheumatoid factor, right hand (principal); M06.042 Rheumatoid arthritis without rheumatoid factor, left hand; M34.9 Systemic sclerosis, unspecified; M35.9 Systemic involvement of connective tissue, unspecified; Z71.89 Other specified counseling; Z79.899 Other long term (current) drug therapy; R76.8 Other specified abnormal immunological findings in serum; M47.26 Other spondylosis with radiculopathy, lumbar region; M79.7 Fibromyalgia; F32.A Depression, unspecified; F41.9 Anxiety disorder, unspecified; G47.33 Obstructive sleep apnea (adult) (pediatric); Z87.09 Personal history of other diseases of the respiratory system | CPT/HCPCS: 36415; 80076; 82565; 85025; 86140; 99214 ==

== ENCOUNTER 2022-07-06 15:24 | Outpatient (CLI) | payer MEDICAID, SELFPAY ==
[2022-07-06 15:45] LABS: Basophils # 0.1 10^3/uL (0.0-0.1); Basophils % 1.2 %; Eosinophils # 0.3 10^3/uL (0.0-0.8); Eosinophils % 3.2 %; Hematocrit 42.2 % (37.0-47.0); Hemoglobin 14.1 g/dL (11.5-15.3); Lymphocytes # 2.6 10^3/uL (0.8-4.8); Mean Corpuscular HGB Conc 33.4 g/dL (30.0-36.0); Mean Corpuscular Hemoglobin 31.7 pg (28.0-34.0); Mean Corpuscular Volume 94.8 fl (81-99); Mean Platelet Volume 9.7 fL (7.4-10.4); Monocytes # 0.7 10^3/uL (0.2-0.9); Neutrophils # 4.73 10^3/uL (1.8-7.7); Neutrophils % 56.5 %; Nucleated Red Blood Cells % 0 %; Platelet Count 339 10^3/cmm (130-400); Red Blood Count 4.45 10^6/uL (4.1-5.3); White Blood Count 8.4 10^3/uL (4.0-10.0)
[2022-07-06 16:39] LABS: Alanine Aminotransferase 17 U/L (0-33); Alkaline Phosphatase 86 U/L (35-105); Glomerular Filtration Rate 104.2 mL/min (90-130); Total Bilirubin 0.3 mg/dL (0.15-1.2)
[2022-07-06 17:33] LABS: Aspartate Amino Transferase 21 U/L (0-32)
== END 2022-07-06 15:25 | disposition home or self-care (01) ==
LOC: LAB 15:29
PROVIDERS: PCP Nurse Practitioner Family; Visit Provider Internal Medicine Rheumatology
DX: M06.041 Rheumatoid arthritis without rheumatoid factor, right hand (principal); M06.042 Rheumatoid arthritis without rheumatoid factor, left hand; Z79.899 Other long term (current) drug therapy
CPT/HCPCS: 36415; 80076; 82565; 85025; 86140

== ENCOUNTER → 2022-07-29 12:56 | Outpatient (BNVA) | payer MEDICAID, SELFPAY | PROVIDERS: PCP Nurse Practitioner Family; Visit Provider Psychiatry & Neurology Neurology | DX: F41.9 Anxiety disorder, unspecified (principal) | CPT/HCPCS: 80061; 83036 ==

== ENCOUNTER → 2022-08-18 14:13 | Outpatient (BNVA) | payer MEDICAID, SELFPAY ==
[2022-08-06 16:17] VITALS: BP 135/73; BMI 34.1
== END ==
PROVIDERS: PCP Nurse Practitioner Family; Visit Provider Internal Medicine Rheumatology
DX: M06.041 Rheumatoid arthritis without rheumatoid factor, right hand (principal); M06.042 Rheumatoid arthritis without rheumatoid factor, left hand; Z79.899 Other long term (current) drug therapy; Z71.89 Other specified counseling; R76.8 Other specified abnormal immunological findings in serum; M79.7 Fibromyalgia; F41.8 Other specified anxiety disorders; G47.33 Obstructive sleep apnea (adult) (pediatric); Z79.52 Long term (current) use of systemic steroids
CPT/HCPCS: 99214

== ENCOUNTER → 2022-10-01 08:49 | Outpatient (BNVA) | payer MEDICAID, SELFPAY ==
[2022-08-06 16:17] VITALS: BP 135/73; BMI 34.1
== END ==
PROVIDERS: PCP Nurse Practitioner Family; Visit Provider Nurse Practitioner Women's Health
DX: Z01.419 Encounter for gynecological examination (general) (routine) without abnormal findings (principal); R35.0 Frequency of micturition; Z79.899 Other long term (current) drug therapy; Z79.890 Hormone replacement therapy; L98.9 Disorder of the skin and subcutaneous tissue, unspecified
CPT/HCPCS: 81000; 87086; 88175

== ENCOUNTER → 2022-10-13 09:39 | Outpatient (BNVA) | payer MEDICAID, SELFPAY ==
[2022-08-06 16:17] VITALS: BP 135/73; BMI 34.1
== END ==
PROVIDERS: PCP Nurse Practitioner Family; Visit Provider Obstetrics & Gynecology
DX: L98.9 Disorder of the skin and subcutaneous tissue, unspecified (principal)
CPT/HCPCS: 88304

== ENCOUNTER 2022-11-06 13:07 | Outpatient (CLI) | payer MEDICAID, SELFPAY ==
[2022-08-06 16:17] VITALS: BP 135/73; BMI 34.1
[2022-11-06 13:29] LABS: Basophils # 0.1 10^3/uL (0.0-0.1); Eosinophils # 0.3 10^3/uL (0.0-0.8); Eosinophils % 3.7 %; Hematocrit 40.1 % (37.0-47.0); Hemoglobin 13.2 g/dL (11.5-15.3); Lymphocytes # 2.1 10^3/uL (0.8-4.8); Lymphocytes % 29.4 %; Mean Corpuscular HGB Conc 32.9 g/dL (30.0-36.0); Mean Corpuscular Hemoglobin 30.8 pg (28.0-34.0); Mean Corpuscular Volume 93.5 fl (81-99); Mean Platelet Volume 9.5 fL (7.4-10.4); Monocytes # 0.7 10^3/uL (0.2-0.9); Monocytes % 10.3 %; Neutrophils # 3.89 10^3/uL (1.8-7.7); Neutrophils % 55.5 %; Nucleated Red Blood Cells % 0 %; Platelet Count 298 10^3/cmm (130-400); Red Blood Count 4.29 10^6/uL (4.1-5.3); Red Cell Distribution Width 12.2 % (12.1-15.1)
[2022-11-06 13:46] LABS: Alanine Aminotransferase 15 U/L (0-33); Albumin Level 4.3 g/dL (3.5-5.2); Alkaline Phosphatase 73 U/L (35-105); Aspartate Amino Transferase 18 U/L (0-32); Globulin 2.7 g/dL (1.3-4.6); Glomerular Filtration Rate 104.2 mL/min (90-130); Total Bilirubin 0.5 mg/dL (0.15-1.2)
== END 2022-11-06 13:08 | disposition home or self-care (01) ==
PROVIDERS: PCP Nurse Practitioner Family; Visit Provider Internal Medicine Rheumatology
DX: M06.041 Rheumatoid arthritis without rheumatoid factor, right hand (principal); M06.042 Rheumatoid arthritis without rheumatoid factor, left hand; Z79.899 Other long term (current) drug therapy
CPT/HCPCS: 36415; 80076; 82565; 85025; 86140

== ENCOUNTER → 2022-12-24 13:08 | Outpatient (BNVA) | payer MEDICAID, SELFPAY ==
[2022-08-06 16:17] VITALS: BP 135/73; BMI 34.1
== END ==
PROVIDERS: PCP Nurse Practitioner Family; Visit Provider Internal Medicine Rheumatology
DX: M06.041 Rheumatoid arthritis without rheumatoid factor, right hand (principal); M06.042 Rheumatoid arthritis without rheumatoid factor, left hand; Z79.899 Other long term (current) drug therapy; Z71.89 Other specified counseling; R76.8 Other specified abnormal immunological findings in serum
CPT/HCPCS: 99214

== ENCOUNTER 2023-01-22 14:21 | Outpatient (CLI) | payer MEDICAID, SELFPAY ==
[2022-08-06 16:17] VITALS: BP 135/73; BMI 34.1
[2023-01-27 14:44] LABS: Quantiferon Mitogen 8.85 IU/mL; Quantiferon Nil 0.02 IU/mL; Quantiferon TB Gold NEGATIVE (NEGATIVE)
== END 2023-01-22 14:22 | disposition home or self-care (01) ==
LOC: LAB 14:25
PROVIDERS: PCP Nurse Practitioner Family; Visit Provider Internal Medicine Rheumatology
DX: Z11.1 Encounter for screening for respiratory tuberculosis (principal)
CPT/HCPCS: 36415; 86480

== ENCOUNTER → 2023-02-02 14:59 | Outpatient (BNVA) | payer MEDICAID, SELFPAY ==
[2022-08-06 16:17] VITALS: BP 135/73; BMI 34.1
== END ==
PROVIDERS: PCP Nurse Practitioner Family; Visit Provider Family Medicine
DX: G43.909 Migraine, unspecified, not intractable, without status migrainosus (principal); R11.0 Nausea; M25.551 Pain in right hip; M25.552 Pain in left hip; G89.29 Other chronic pain; M25.561 Pain in right knee; M25.562 Pain in left knee
CPT/HCPCS: 73523; 73562

== ENCOUNTER 2023-02-23 13:28 | Outpatient (CLI) | payer MEDICAID, SELFPAY ==
[2022-08-06 16:17] VITALS: BP 135/73; BMI 34.1
[2023-02-23 13:54] LABS: Basophils # 0.1 10^3/uL (0.0-0.1); Basophils % 0.9 %; Eosinophils # 0.2 10^3/uL (0.0-0.8); Eosinophils % 3.2 %; Hematocrit 39.6 % (36-47); Lymphocytes # 2.7 10^3/uL (0.8-4.8); Mean Corpuscular HGB Conc 33.6 g/dL (30-55); Mean Corpuscular Hemoglobin 31.3 pg (27-33); Mean Corpuscular Volume 93.2 fl (85-98); Mean Platelet Volume 9.6 fL (7.4-10.4); Monocytes # 0.6 10^3/uL (0.2-0.9); Monocytes % 9.7 %; Neutrophils # 2.97 10^3/uL (1.8-7.7); Nucleated Red Blood Cells % 0 %; Platelet Count 272 10^3/cmm (157-399); Red Blood Count 4.25 10^6/uL (3.85-5.65); White Blood Count 6.59 10^3/uL (3.29-11.43)
[2023-02-23 14:22] LABS: Alanine Aminotransferase 29 U/L (0-33); Albumin Level 4.6 g/dL (3.5-5.2); Alkaline Phosphatase 76 U/L (35-105); Aspartate Amino Transferase 26 U/L (0-32); Globulin 2.6 g/dL (1.3-4.6); Glomerular Filtration Rate 87.2 mL/min (90-130); Total Bilirubin 0.5 mg/dL (0.15-1.2); Total Protein 7.2 g/dL (6.6-8.7)
== END 2023-02-23 13:29 | disposition home or self-care (01) ==
LOC: LAB 13:31
PROVIDERS: PCP Nurse Practitioner Family; Visit Provider Internal Medicine Rheumatology
DX: M06.041 Rheumatoid arthritis without rheumatoid factor, right hand (principal); M06.042 Rheumatoid arthritis without rheumatoid factor, left hand; Z79.899 Other long term (current) drug therapy
CPT/HCPCS: 36415; 80076; 82565; 85025; 86140

== ENCOUNTER → 2023-03-08 08:24 | Outpatient (BNVA) | payer MEDICAID, SELFPAY ==
[2022-08-06 16:17] VITALS: BP 135/73; BMI 34.1
== END ==
PROVIDERS: PCP Nurse Practitioner Family; Referring Provider Family Medicine; Visit Provider Specialist
DX: M25.562 Pain in left knee (principal); M25.561 Pain in right knee; G89.29 Other chronic pain
CPT/HCPCS: 73560; 73565; 99214

== ENCOUNTER 2023-04-30 09:23 | Outpatient (CLI) | payer MEDICAID, SELFPAY ==
[2022-08-06 16:17] VITALS: BP 135/73; BMI 34.1
--- NOTE | 2023-04-30 09:30 | MR_ITS ---
WS: [id number] MRI LEFT KNEE HISTORY: knee pain COMPARISON: 03/13/2013, radiograph 03/08/2023 Anterior cruciate ligament: Intact. Posterior cruciate ligament: Intact. Medial collateral ligament: Intact. Posterior lateral corner structures: Intact. Medial menisci: Intact. Normal signal, size and shape. Lateral meniscus: Intact. Normal signal, size and shape. Extensor mechanism: Distal quadriceps tendon and patellar tendons are intact. Fluid and soft tissue: No joint effusion. No Rogers's cyst. Osseous and articular structures: Patellofemoral compartment: Focal osteochondral lesion at the patellar eminence measures 11 x 5 mm. M oderate chondromalacia along the lateral patellar facet with a small amount of underlying marrow uday a. Mild progression of the osteochondral lesions since 2012. Medial compartment: No significant joint space narrowing. Normal cartilage. Lateral compartment: Mild osteochondral lesions along the weightbearing surface of the lateral femora l condyle and the tibial plateau. No underlying marrow edema. These osteochondral lesions are new sin ce the prior study. IMPRESSION: 1. Focal osteochondral lesion along the patellar eminence measures 11 x 5 mm. New since 2012. 2. 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 3. Small weightbearing osteochondral lesions along the femoral condyle and tibial plateau the lateral compartment. New since 2012. 4. No meniscal tear.
== END 2023-04-30 09:24 | disposition home or self-care (01) ==
PROVIDERS: PCP Family Medicine; Visit Provider Specialist
DX: M22.42 Chondromalacia patellae, left knee (principal); M89.9 Disorder of bone, unspecified
CPT/HCPCS: 73721

== ENCOUNTER 2023-07-01 13:12 | Outpatient (CLI) | payer MEDICAID, SELFPAY ==
[2022-08-06 16:17] VITALS: BP 135/73; BMI 34.1
[2023-07-01 13:36] LABS: Basophils # 0.1 10^3/uL (0.0-0.1); Basophils % 0.6 %; Eosinophils # 0.3 10^3/uL (0.0-0.8); Eosinophils % 2.8 %; Hematocrit 40.8 % (36-47); Lymphocytes # 2.1 10^3/uL (0.8-4.8); Lymphocytes % 21.2 %; Mean Corpuscular HGB Conc 33.6 g/dL (30-55); Mean Corpuscular Hemoglobin 31.1 pg (27-33); Mean Corpuscular Volume 92.5 fl (85-98); Mean Platelet Volume 9.1 fL (7.4-10.4); Monocytes # 0.8 10^3/uL (0.2-0.9); Neutrophils # 6.64 10^3/uL (1.8-7.7); Neutrophils % 67.2 %; Nucleated Red Blood Cells % 0 %; Platelet Count 292 10^3/cmm (157-399); Red Blood Count 4.41 10^6/uL (3.85-5.65); White Blood Count 9.88 10^3/uL (3.29-11.43)
[2023-07-01 13:53] LABS: Alanine Aminotransferase 18 U/L (0-33); Albumin Level 3.8 g/dL (3.5-5.2); Alkaline Phosphatase 103 U/L (35-105); Aspartate Amino Transferase 21 U/L (0-32); C Reactive Protein 15.4 mg/L (0.0-4.9); Globulin 3.3 g/dL (1.3-4.6); Glomerular Filtration Rate 103.8 mL/min (90-130); Total Bilirubin 0.4 mg/dL (0.15-1.2); Total Protein 7.1 g/dL (6.6-8.7)
== END 2023-07-01 13:13 | disposition home or self-care (01) ==
LOC: LAB 13:14
PROVIDERS: PCP Family Medicine; Visit Provider Internal Medicine Rheumatology
DX: M19.90 Unspecified osteoarthritis, unspecified site (principal); Z79.899 Other long term (current) drug therapy
CPT/HCPCS: 36415; 80076; 82565; 85025; 86140

== ENCOUNTER → 2023-07-08 13:27 | Outpatient (BNVA) | payer MEDICAID, SELFPAY ==
[2022-08-06 16:17] VITALS: BP 135/73; BMI 34.1
== END ==
PROVIDERS: PCP Family Medicine; Visit Provider Internal Medicine Rheumatology
DX: Z79.899 Other long term (current) drug therapy (principal); M06.041 Rheumatoid arthritis without rheumatoid factor, right hand; M06.042 Rheumatoid arthritis without rheumatoid factor, left hand; Z71.89 Other specified counseling; R76.8 Other specified abnormal immunological findings in serum; I73.00 Raynaud's syndrome without gangrene
CPT/HCPCS: 99214

== ENCOUNTER 2023-10-15 14:18 | Outpatient (CLI) | payer MEDICAID, SELFPAY ==
[2022-08-06 16:17] VITALS: BP 135/73; BMI 34.1
--- NOTE | 2023-10-15 14:30 | XR_ITS ---
WS: [id number] SCREENING DEXA SCAN [employer] CLINICAL INFORMATION: Z79.899 - Other long term care phlebotomist (current) drug therapy COMPARISON: None. FINDINGS: The L1-L4 bone mineral density measures 0.968 g/cm2. This corresponds to a T score score of -1.8 and Z score of -2.0. Left femoral neck bone mineral density measures 0.921 g/cm2. This corresponds to a T score of -0.7 an d Z score of -0.8. Right femoral neck bone mineral density measures 0.872 g/cm2. This corresponds to a T score -1.1of an d Z score of -1.2. Mean femoral neck bone mineral density measures 0.896 g/cm2. This corresponds to a T score of -0.9 an d Z score of -1.0. XR/XR DEXA axial skeleton* [id number] IMPRESSION: Osteopenia lumbar spine. Normal bone mineralization femoral necks at the upper end of the range approaching osteopenia. Patient's FRAX calculated 10 year probability for major osteoporotic fracture i s 15.5% and osteoporotic hip fracture is 1.8%.
== END 2023-10-15 14:19 | disposition home or self-care (01) ==
LOC: RAD 14:19
PROVIDERS: PCP Family Medicine; Visit Provider Nurse Practitioner Women's Health
DX: Z79.899 Other long term (current) drug therapy; M85.88 Other specified disorders of bone density and structure, other site
CPT/HCPCS: 77080

== ENCOUNTER 2023-10-18 10:22 | Outpatient (CLI) | payer MEDICAID, SELFPAY ==
[2022-08-06 16:17] VITALS: BP 135/73; BMI 34.1
[2023-10-18 11:10] LABS: Basophils # 0.1 10^3/uL (0.0-0.1); Basophils % 0.8 %; Eosinophils # 0.1 10^3/uL (0.0-0.8); Eosinophils % 2.1 %; Hematocrit 42.2 % (36-47); Lymphocytes # 2.6 10^3/uL (0.8-4.8); Lymphocytes % 41.5 %; Mean Corpuscular HGB Conc 33.6 g/dL (30-55); Mean Corpuscular Hemoglobin 31.1 pg (27-33); Mean Corpuscular Volume 92.3 fl (85-98); Mean Platelet Volume 9.4 fL (7.4-10.4); Monocytes # 0.5 10^3/uL (0.2-0.9); Monocytes % 8.2 %; Neutrophils # 2.94 10^3/uL (1.8-7.7); Neutrophils % 47.2 %; Nucleated Red Blood Cells % 0 %; Platelet Count 301 10^3/cmm (157-399); Red Blood Count 4.57 10^6/uL (3.85-5.65); Red Cell Distribution Width 12.2 % (12.1-15.1); White Blood Count 6.22 10^3/uL (3.29-11.43)
[2023-10-18 11:33] LABS: Alanine Aminotransferase 14 U/L (0-33); Albumin Level 4.3 g/dL (3.5-5.2); Alkaline Phosphatase 93 U/L (35-105); Aspartate Amino Transferase 16 U/L (0-32); Globulin 3.1 g/dL (1.3-4.6); Glomerular Filtration Rate 86.9 mL/min (90-130); Total Bilirubin 0.5 mg/dL (0.15-1.2); Total Protein 7.4 g/dL (6.6-8.7)
== END 2023-10-18 10:23 | disposition home or self-care (01) ==
LOC: MOBLMAM 10:23
PROVIDERS: Internal Medicine Rheumatology; PCP Family Medicine; Visit Provider Nurse Practitioner Women's Health
DX: Z79.899 Other long term (current) drug therapy; M06.041 Rheumatoid arthritis without rheumatoid factor, right hand; M06.042 Rheumatoid arthritis without rheumatoid factor, left hand
CPT/HCPCS: 36415; 80076; 82565; 85025; 86140

== ENCOUNTER → 2023-10-21 14:23 | Outpatient (BNVA) | payer MEDICAID, SELFPAY ==
[2022-08-06 16:17] VITALS: BP 135/73; BMI 34.1
== END ==
PROVIDERS: Visit Provider Internal Medicine Rheumatology
DX: M06.041 Rheumatoid arthritis without rheumatoid factor, right hand (principal); M06.042 Rheumatoid arthritis without rheumatoid factor, left hand; Z79.899 Other long term (current) drug therapy; Z71.89 Other specified counseling; R76.8 Other specified abnormal immunological findings in serum; I73.00 Raynaud's syndrome without gangrene
CPT/HCPCS: 99214

== ENCOUNTER 2023-11-09 09:27 | Outpatient (CLI) | payer MEDICAID, SELFPAY ==
[2022-08-06 16:17] VITALS: BP 135/73; BMI 34.1
--- NOTE | 2023-11-09 09:35 | MM_ITS ---
WS: [id number] BILATERAL 3D TOMOSYNTHESIS DIGITAL SCREENING MAMMOGRAPHY WITH CAD CLINICAL INFORMATION: SCREENING HISTORY: Screening mammogram. No current complaints. COMPARISON: 2014 TECHNIQUE: Bilateral CC and MLO views. FINDINGS: Scattered fibroglandular densities bilaterally. No suspicious focal mass, asymmetry, calcifications, or architectural distortion. No evidence of malignancy. A few tiny incidental punctate calcifications RIGHT breast MM/[place] [id number] IMPRESSION: BI-RADS: 2-Benign FOLLOW UP: 1 Year Follow-up Recommend return to annual screening mammography.
== END 2023-11-09 09:28 | disposition home or self-care (01) ==
LOC: MOBLMAM 09:29
PROVIDERS: PCP Nurse Practitioner Women's Health; Visit Provider Nurse Practitioner Women's Health
DX: Z12.31 Encounter for screening mammogram for malignant neoplasm of breast (principal); R92.323 Mammographic fibroglandular density, bilateral breasts
CPT/HCPCS: 77063; 77067

== ENCOUNTER → 2024-03-16 13:30 | Outpatient (BNVA) | payer MEDICAID, SELFPAY ==
[2022-08-06 16:17] VITALS: BP 135/73; BMI 34.1
== END ==
PROVIDERS: Visit Provider Internal Medicine Rheumatology
DX: M06.041 Rheumatoid arthritis without rheumatoid factor, right hand (principal); M06.042 Rheumatoid arthritis without rheumatoid factor, left hand; I73.00 Raynaud's syndrome without gangrene; R76.8 Other specified abnormal immunological findings in serum; Z79.899 Other long term (current) drug therapy; Z71.85 Encounter for immunization safety counseling; M51.369 Other intervertebral disc degeneration, lumbar region without mention of lumbar back pain or lower extremity pain; M47.26 Other spondylosis with radiculopathy, lumbar region; M79.7 Fibromyalgia; F41.9 Anxiety disorder, unspecified; F32.A Depression, unspecified; G47.33 Obstructive sleep apnea (adult) (pediatric); Z87.09 Personal history of other diseases of the respiratory system; Z98.890 Other specified postprocedural states
CPT/HCPCS: 80076; 82565; 85025; 85651; 86140; 99214

== ENCOUNTER → 2024-08-28 13:41 | Outpatient (BNVA) | payer MEDICAID, SELFPAY ==
[2022-08-06 16:17] VITALS: BP 135/73; BMI 34.1
== END ==
PROVIDERS: PCP Nurse Practitioner Family; Visit Provider Internal Medicine Rheumatology
DX: M06.041 Rheumatoid arthritis without rheumatoid factor, right hand (principal); M06.042 Rheumatoid arthritis without rheumatoid factor, left hand; Z79.899 Other long term (current) drug therapy; Z71.89 Other specified counseling; R76.8 Other specified abnormal immunological findings in serum; I73.00 Raynaud's syndrome without gangrene
CPT/HCPCS: 36415; 80076; 82565; 85025; 85651; 86140; 99214